=== PATIENT | female | born 1960 | race Caucasian/White ===

== ENCOUNTER 2017-04-19 04:25 | Inpatient (IN) | payer OTHER ==
[~2017-04-19] VITALS: Ht 157.5 cm; Wt 74.0 kg
--- NOTE | ~2017-04-19 | CR126 ---
[facility] A Service of [facility] & [facility] RADIOLOGY TEXT RESULTS PATIENT: INA MICHAEL LOCATION: [facility] 338-01 : [birth year] UNIT #: [id number] AGE: [address]: Jack Kim MD SEX: F ORDER DR: [id number] [facility] [address] [facility]. [place], [place] [address] [id number] MR#: [id number] Acc #: [id number] NAME: INA MICHAEL : 1960 SEX: F STUDY DATE/TIME: 04/19/2017 4:51 UNIT: CEDOF ROOM: [facility] STUDY DESCRIPTION: CR Foot Complete Min 3 View Lt Attending Physician: Jack Kim M.D. Ordering Physician: Francesco Lye M.D. Primary Care Physician: [facility], [facility]. MEDICAL IMAGING REPORT This report is preliminary unless electronic signature is present EXAM Left foot. INDICATION Left foot pain today with no known injury. FINDINGS Three views of the left foot were obtained. There is mild hallux valgus. There is no fracture identified. IMPRESSION Mild hallux valgus, otherwise normal. Dictated by... Delvis Shelley M.D. THIS IS AN ELECTRONICALLY VERIFIED REPORT Delvis Shelley M.D. at 04/19/2017 1:32 PM BHARTI/grey TD: 04/19/2017 09:37 JOB #: [id number] MEDICAL IMAGING REPORT Page 1 of 1 COPY
--- NOTE | ~2017-04-19 | CO ---
Unit #: [id number] #: [id number] Patient: INA MICHAEL [id number] [address] [place], [place] [address] [id number] MR#: [id number] NAME: INA MICHAEL ROOM: 338 Age: 56 Sex: F Admission Date: 04/19/2017 : 1960 Attending Physician: Jack Kim M.D. Primary Care Physician: [facility] Consultation Date: 04/20/2017 CONSULTATION REPORT REASON FOR CONSULTATION Depression, suicidal ideation. HISTORY OF PRESENT ILLNESS Ms. Ina Nunez is a 56-year-old white female, seen in room 338, bed 1 on 04/20/2017. The patient dressed casually in hospital attire, sitting comfortably, has an IV line, made good eye contact. The patient was able to answer questions appropriately. Currently, denied any suicidal or homicidal ideation. The patient admitted drinking before coming to the hospital and making comments about harming herself, mainly she wanted to come to the hospital. The patient diagnosed with cellulitis of her left leg. The patient currently denied any suicidal or homicidal ideation. Denied any psychotic symptom. The patient is currently on CIWA protocol and multivitamin, thiamine, folic acid. The patient has a sitter, but currently denied any suicidal or homicidal ideation, able to contract for safety. The patient reported some stressors about loss of family members lately. Currently, takes medication Paxil 20 mg daily, followed by Dr. Fischer in outpatient clinic. The patient denied any previous inpatient treatment. PAST PSYCHIATRIC HISTORY The patient has no history of any inpatient psych treatment. MEDICATION HISTORY The patient is on lisinopril, clonidine, and Paxil. MEDICAL HISTORY The patient has a history of anxiety, depression, chronic weakness, difficulty with transferring, GERD, hypertension, osteoarthritis, and chronic low back pain. FAMILY HISTORY AND SOCIAL HISTORY The patient reports that she has a good support system from family. No history of any abuse. Admitted use of alcohol, amount unknown. Denied use of any street drugs. REVIEW OF SYSTEMS Complete review of systems is unremarkable except as mentioned above. MENTAL STATUS EXAMINATION Vital signs; temperature 98.2, heart rate 86, respiratory rate 18, blood pressure 148/98, and oxygen saturation 98%. General appearance; the patient moderately obese, dressed casually, sitting comfortably in chair, seemed anxious and nervous. Attention span and concentration, fair. Unit #: [id number] #: [id number] Patient: INA MICHAEL Speech, regular rate and coherent. Oriented in time, place, and person. Mood and affect, labile. Thought process, coherent. Thought content, the patient denied any thoughts of harming self or others or any psychotic symptom. Recent and remote memory, fair. Language, intact. Fund of knowledge, fair. Insight and judgment, fair to slightly impaired. DIAGNOSES Psychiatric: Major depressive disorder, recurrent, severe, F33.2; alcohol use disorder, moderate to severe, F10.20. Secondary diagnosis: Deferred. Medical diagnosis: Please refer to H and P. Stressors: Psychosocial stressors. ASSESSMENT/PLAN 1. Supportive psychotherapy and psychoeducation provided to the patient. 2. Educated about benefits and side effects of medication and course and prognosis of illness. 3. Advised detox protocol and detox monitoring. 4. Advised to change the Paxil to 30 mg daily. If needed, we will monitor for withdrawal symptoms. Please feel free to call if any questions, telephone #[phone]. Also recommending the patient to follow up on the outpatient basis with psychiatrist once discharged from the hospital. Dictated by... Jules Ibrahim/natalie TD: 04/23/2017 04:33 JOB #: [id number] CONSULTATION REPORT Page 1 of 1 X Rohit Rios MD X CONSULTATION REPORT
--- NOTE | ~2017-04-19 | HP ---
Unit #: [id number] #: [id number] Patient: INA GARCIAS [id number] [address] [address] [id number] Emily MR#: [id number] NAME: INA GARCIAS ROOM: 02981 Age: 56 Sex: F Admission Date: 04/19/2017 : 1960 Attending Physician: Jack Kim M.D. Primary Care Physician: [facility]. HISTORY AND PHYSICAL CHIEF COMPLAINT Left ankle pain. REASON FOR ADMISSION Hypotension, unresponsive to IV fluids. HISTORY OF PRESENT ILLNESS Ms. Ina Garcias is a 56-year-old white female who came in the emergency room complaining of left foot swelling. She was noted to be intoxicated and admitted to alcohol. She also endorsed suicidal ideation. Her blood pressure, over the two hours before I was called to the admit patient, ranged from 73 systolic to 80 systolic over 43 diastolic to 56 diastolic. The patient had received one liter normal saline and had not had any improvement in her blood pressures. I accepted the patient has an admission to the ICU with instructions to get central venous access and continue IV fluid resuscitation at this time. The patient admits to alcohol abuse where she drinks to intoxication once per week. She has a history of more severe daily alcohol use in her past. She notes that she has a history of high blood pressure and she normally takes clonidine unknown dose twice daily and lisinopril unknown dose once daily. She denies taking any additional pills for this. The patient admits feeling depressed but otherwise generally feels good. She has some mild cough that is nonproductive that she reports she has had for one or two weeks but does not have any coughing during my exam. PAST MEDICAL HISTORY Depression, anxiety, history of chronic weakness with some difficulty transferring from chairs to standing, although she does walk without assistive devices, GERD, hypertension, osteoarthritis, chronic low back pain. PAST SURGICAL HISTORY . SOCIAL HISTORY She smokes one-half to one pack per day. She denies any illicit drug abuse. She does use alcohol once weekly and drinks to intoxication. FAMILY HISTORY She reports her father of pneumonia and had no chronic medical issues. No lung disease chronically. She reports her mother of uterine cancer and had no other medical diseases. No other significant family history per patient. Unit #: [id number] #: [id number] Patient: INA GARCIAS ALLERGIES She reports an allergy to a medication that she thinks is perhaps hydralazine but she is not certain. She does not know what happens when she gets this medication. HOME MEDICATIONS Listed as likely incomplete as patient does not seem very sure about her medications but includes: 1. Lisinopril. 2. Clonidine. 3. Paxil. 4. Unknown pain medication, as she was recently taken off of Lortab and put onto something that "does not work as well". She follows with Pain Management per her report. REVIEW OF SYSTEMS A full 10-point review of systems is done, is positive for what is noted above in the HPI and is otherwise completely negative. PHYSICAL EXAMINATION GENERAL APPEARANCE: The patient is mildly intoxicated but conversive, no acute distress. VITAL SIGNS: Blood pressure 74/43. Temperature 98. Pulse 77. Respiratory rate 16. HEENT: Head: Normocephalic, atraumatic. Eyes: Sclerae are white. Conjunctivae are normally fused. Nose: External nares are normal. There is no bleeding or drainage. Mouth: Mucous membranes are dry. There is no oropharyngeal lesions. NECK: Supple. No cervical lymphadenopathy. Trachea is midline. CARDIOVASCULAR: Regular rate and rhythm. No murmurs. LUNGS: Clear to auscultation bilaterally. No rales, rhonchi, wheezes. Air exchange is 4+/4 bilaterally. ABDOMEN: Soft, nontender, nondistended. No mass or hepatosplenomegaly. MUSCULOSKELETAL: No joint effusions. No muscle or joint tenderness except at her left ankle which is mildly tender to movement. There is no effusion, warmth or redness of the ankle. SKIN: Warm, dry. No rashes. NEUROLOGIC: The patient is conversive. She is appropriate. She is moderately intoxicated but is alert during my conversation with her. She has 4/5 strength in all four extremities and she has no focal sensory deficits in any of her extremities. DIAGNOSTIC STUDIES LABORATORY: Alcohol level is 155. CBC is normal. Complete metabolic profile is normal. Tylenol and salicylate levels are normal. Urine drug screen is positive only for TCA. Urinalysis shows 2+ leukocyte esterase, only 2 to 5 WBCs, negative nitrites, 1+ bacteria. IMAGING: No fractures on the x-ray of the left foot. Final report is pending. ASSESSMENT AND PLAN 1. Hypovolemic shock aggravated by blood pressure meds including lisinopril and clonidine as well as alcohol intoxication. The patient denies overdose and appears reliable in this respect of her history. We will check serial troponins and continue high flow IV fluids. We have asked the critical care nurse practitioner to come Unit #: [id number] #: [id number] Patient: INA GARCIAS place central access and, at this time, we are planning admission to the ICU. If the patient's systolic blood pressure can get above 90 for over 60 minutes, we will consider downgrading the patient to telemetry. At this time, I have very low suspicion of any sepsis or cardiogenic issues. 2. Depression with suicidal ideation. The patient has been placed on hold in the ER and is under suicide precautions at this time. When she is medically stable, we will consider transfer to [facility]. 3. Anxiety. The patient reports she is on Paxil at home. We will try to get the home dosing and likely restart this tomorrow. 4. Left foot pain. It appears to be related to an ankle sprain. We will treat conservatively. 5. DVT prophylaxis. We will place her on Lovenox. 6. GI prophylaxis is not indicated at this time. 7. The patient is a FULL CODE. 8. Alcohol abuse. The patient is counseled and will be re-counseled again when she is sober. 9. Chronic physical deconditioning. We will ask PT and OT to work with the patient once her blood pressure is improved but, at baseline, she does have difficulty with transfers from sitting to standing. Dictated by Jack Kim M.D. BONNIE/baljeet TD: 04/19/2017 09:36 JOB #: [id number] HISTORY AND PHYSICAL Page 1 of 1 X Jack Kim MD X HISTORY AND PHYSICAL
--- NOTE | ~2017-04-19 | DS ---
Unit #: [id number] #: [id number] Patient: INA MICHAEL [id number] [address] [address] [id number] I MR#: [id number] NAME: INA MICHAEL ROOM: 338 Age: 56 Sex: F Admission Date: 04/19/2017 : 1960 Discharge Date: 04/21/2017 Attending Physician: Jack Kim M.D. Primary Care Physician: [facility]. DISCHARGE SUMMARY DIAGNOSIS ON ADMISSION Hypotension. DIAGNOSES ON DISCHARGE 1. Hypotension, resolved. 2. Depression. 3. Left foot pain. 4. Alcohol abuse. 5. Degenerative joint disease. 6. Chronic low back pain. 7. Gastroesophageal reflux disease. 8. Anxiety disorder. CONSULTATION Dr. Rios in Psychiatry consultation. DIAGNOSTIC STUDIES LABORATORY: Creatinine is 0.8, sodium 136, and potassium is 3.8. WBC 7, hemoglobin 11.9, and platelet count is 223,000. Urine culture revealed less than 10,000 growth. Troponin was 0.03. Urine toxicology screen was positive for tricyclic antidepressants. Serum alcohol level on admission was 155. IMAGING: Left foot x-ray revealed mild hallux valgus, otherwise normal. HOSPITAL COURSE A 56-year-old female was admitted to the hospital with hypotension. Details are as per admission History and Physical. Patient was given IV fluids. She responded well, and her blood pressure is stable. Suicidal ideation. Patient had suicidal ideation on admission and was admitted under a 72-hour hold. She was seen by Dr. Rios in consultation who adjusted patient's medications and the 72-hour hold was discontinued. Today, patient is comfortable and wants to go home. PHYSICAL EXAMINATION VITAL SIGNS: Temperature of 98 degrees, pulse is 72 per minute,, respiratory rate is 14 per minute, and blood pressure is 149/96. HEENT: No conjunctival congestion. Sclerae are nonicteric. NECK: Supple. Trachea is central. RESPIRATORY: Breath sounds equal bilaterally. No wheezes or crackles. HEART: Regular rate and rhythm, S1 and S2. Unit #: [id number] #: [id number] Patient: INA MICHAEL ABDOMEN: Soft and nontender. Bowel sounds are present in all four quadrants. RECOMMENDATIONS ON DISCHARGE 1. Condition is stable. 2. Activity is as tolerated. DISCHARGE MEDICATIONS 1. Tylenol 650 mg p.o. q.4 hours p.r.n. 2. Neurontin 300 mg p.o. t.i.d. 3. Paxil 30 mg p.o. daily. 4. Lipitor 20 mg p.o. at bedtime. 5. Clonidine 0.2 mg p.o. b.i.d. 6. Lisinopril 20 mg p.o. daily. 7. Flexeril 10 mg p.o. t.i.d. p.r.n. 8. Percocet 5 mg p.o. q.6 hours p.r.n. which is patient's home medication. 9. Folic acid 1 mg p.o. daily. 10. Thiamine 100 mg p.o. daily [id number]. FOLLOWUP 1. Patient is advised to follow up with primary care physician in one week and have a CBC and BMP done. 2. Patient is advised to follow up with her psychiatrist at [facility] for alcohol abuse. Patient stated that she will try not to drink anymore. She is aware of the side effects of alcoholism including, but not limited to cirrhosis of the liver and can cause permanent disability and possible . 1. Dictated by... Jules Hayden TD: 04/21/2017 15:45 JOB #: [id number] CC: Rohit Rios M.D. DISCHARGE SUMMARY Page 1 of 1 X Ángela Bundy MD X DISCHARGE SUMMARY
[~2017-04-19 04:25] MED LIST: ANTIVERT PO; ASPIRIN81 MG PO; PAIN RELIEF650 MG PO; PAXIL PO; ZOCOR20 MG PO
[2017-04-19 06:28] LABS: BASOPHIL# 0.1 X10e3 (0-0.3); BASOPHIL% 1.2 % (0-2.5); EOSINOPHIL# 0.2 X10e3 (0-0.7); EOSINOPHIL% 2.8 % (0.0-7.0); HEMATOCRIT 38.2 % (35.0-45.0); HEMOGLOBIN 12.3 gm/dL (12.0-16.0); LYMPHOCYTE# 3.7 X10e3 (1.0-3.5); LYMPHOCYTE% 45.4 % (17.0-45.0); MEAN CELL VOLUME 89.3 FL (83-96); MEAN CORPUSCULAR HEMOGLOBIN 28.7 PG (28-34); MEAN CORPUSCULAR HGB CONC 32.1 g/dL (30-36); MEAN PLATELET VOLUME 7.3 FL (6.5-11.5); MONOCYTE# 0.6 X10e3 (0-1.0); MONOCYTE% 7.6 % (3.0-12.0); NEUTROPHIL# 3.5 X10e3 (1.5-7.1); PLATELET COUNT 231 X10e3 (140-420); RED BLOOD COUNT 4.28 X10e (3.90-5.30); RED CELL DISTRIBUTION WIDTH 15.6 % (11.0-15.5); WHITE BLOOD COUNT 8.2 X10e3 (4.0-10.5)
[2017-04-19 06:30] LABS: DIFF IND NO
[2017-04-19 06:40] LABS: ALBUMIN SERUM 3.8 g/dL (3.5-5.0); ALKALINE PHOSPHATASE 75 U/L (32-92); ALT (SGPT) 15 U/L (10-40); AST (SGOT) 17 U/L (10-42); BILIRUBIN,TOTAL 0.4 mg/dL (0.2-2.0); BLOOD UREA NITROGEN 12 mg/dL (9-23); CARBON DIOXIDE 22 mmol/L (22-31); CHLORIDE 105 mmol/L (100-111); GLOM FILT RATE Estimated 63.8 mL/min (>60); GLUCOSE FASTING 100 mg/dL (70-110); POTASSIUM 3.5 mmol/L (3.5-5.1); PROTEIN TOTAL SERUM 6.9 g/dL (6.0-8.3); SALICYLATE <4.0 mg/dL; SODIUM 141 mmol/L (135-145)
[2017-04-19 06:43] LABS: ACETAMINOPHEN <10 ug/mL
[2017-04-19 07:53] LABS: URINE SOURCE CLEAN CATCH
[2017-04-19 08:00] LABS: URINE APPEARANCE CLEAR; URINE BILIRUBIN NEG (NEG); URINE BLOOD NEG (NEG); URINE COLOR YELLOW; URINE GLUCOSE NEG (NEG); URINE KETONE NEG (NEG); URINE LEUKOCYTE ESTERASE 2+ (NEG); URINE NITRATE NEG (NEG); URINE PROTEIN NEG (NEG); URINE SPECIFIC GRAVITY 1.006 (1.003-1.035); URINE UROBILINOGEN 0.2 MG/DL (NEG)
[2017-04-19 08:02] LABS: CULTURE INDICATED? YES; URBCS1 AUWI 0-2 /[HPF] (0-2); URINE BACTERIA AUWI 1+ (NEGATIVE); URINE SQUAMOUS EPITHELIAL CELL OCC /[HPF]
[2017-04-19 08:27] LABS: AMPHETAMINE NEG (NEG); BARBITURATES NEG (NEG); BENZODIAZEPINES NEG (NEG); COCAINE NEG (NEG); MARIJUANA NEG (NEG); OPIATES NEG (NEG); TRICYCLIC ANTIDEPRESSANTS POS (NEG); U METHADONE NEG (NEG)
[2017-04-19] MEDS ORDERED: PATIENT'S PHARMACY (10:07)
[2017-04-19] MEDS ORDERED: ENDOCET 5-3251 EACH PO (10:08)
[2017-04-19] MEDS ORDERED: FLEXERIL10 MG PO (10:08)
[2017-04-19] MEDS ORDERED: CATAPRES0.1 M1 PO (10:08)
[2017-04-19] MEDS ORDERED: LISINOPRIL PO (10:09)
[2017-04-19] MEDS ORDERED: PAXIL PO (10:09)
[2017-04-19] MEDS ORDERED: GABAPENTIN300 M2 PO (10:09)
[2017-04-19] MEDS ORDERED: LIPITOR20 MG PO (10:10)
[2017-04-20 01:52] LABS: HEMATOCRIT 37.8 % (35.0-45.0); MEAN CELL VOLUME 89.4 FL (83-96); MEAN CORPUSCULAR HEMOGLOBIN 28.5 PG (28-34); MEAN CORPUSCULAR HGB CONC 31.9 g/dL (30-36); MEAN PLATELET VOLUME 7.1 FL (6.5-11.5); RED BLOOD COUNT 4.22 X10e (3.90-5.30); RED CELL DISTRIBUTION WIDTH 15.8 % (11.0-15.5); WHITE BLOOD COUNT 5.4 X10e3 (4.0-10.5)
[2017-04-20 03:56] LABS: CALCIUM SERUM 8.1 mg/dL (8.4-10.2); GLOM FILT RATE Estimated 63.8 mL/min (>60); PHOSPHOROUS 3.3 mg/dL (2.5-4.6); POTASSIUM 4.5 mmol/L (3.5-5.1)
[2017-04-21 05:07] LABS: HEMATOCRIT 36.8 % (35.0-45.0); HEMOGLOBIN 11.9 gm/dL (12.0-16.0); MEAN CELL VOLUME 88.7 FL (83-96); MEAN CORPUSCULAR HEMOGLOBIN 28.6 PG (28-34); MEAN CORPUSCULAR HGB CONC 32.2 g/dL (30-36); MEAN PLATELET VOLUME 7.4 FL (6.5-11.5); RED BLOOD COUNT 4.15 X10e (3.90-5.30); RED CELL DISTRIBUTION WIDTH 15.4 % (11.0-15.5)
[2017-04-21 05:58] LABS: BUN/CREATININE RATIO 26.25; CALCIUM SERUM 8.8 mg/dL (8.4-10.2); CREATININE SERUM 0.8 mg/dL (0.6-1.4); GLOM FILT RATE Estimated 83.7 mL/min (>60); POTASSIUM 3.8 mmol/L (3.5-5.1)
[2017-04-21] MEDS ORDERED: FOLIC ACID1 MG PO (13:24)
[2017-04-21] MEDS ORDERED: THIAMINE HCL100 M2 PO (13:26)
== END 2017-04-21 15:22 | disposition home or self-care (01) | DRG 314 ==
LOC: CED 04:25 → CEDOF 08:16 → C3A PCU 10:51
PROVIDERS: Emergency Medicine; Internal Medicine
DX: I95.9 Hypotension, unspecified (principal); R57.1 Hypovolemic shock; R45.851 Suicidal ideations; F33.2 Major depressive disorder, recurrent severe without psychotic features; Y90.6 Blood alcohol level of 120-199 mg/100 ml; F10.229 Alcohol dependence with intoxication, unspecified; F17.200 Nicotine dependence, unspecified, uncomplicated; F41.9 Anxiety disorder, unspecified; K21.9 Gastro-esophageal reflux disease without esophagitis; M19.90 Unspecified osteoarthritis, unspecified site; G89.29 Other chronic pain; M54.5 Low back pain; M79.672 Pain in left foot; Z80.8 Family history of malignant neoplasm of other organs or systems; Z83.6 Family history of other diseases of the respiratory system
CPT/HCPCS: 36415; 73630; 80048; 80053; 80307; 81003; 83735; 84100; 84484; 85025; 85027; 87086; 94760; 96360; 96361; 97116; 97161; 97165; 99285; G0480; G8978-GP; G8979-GP; G8980-GP; G8987-GO; G8988-GO; J1650